=== PATIENT | male | born 1985 | race Caucasian/White ===

== ENCOUNTER 2018-12-07 13:43 | Emergency (ER) | payer OTHER ==
[2018-12-07 14:01] VITALS: TEMP 98.7; O2SAT 99
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
[2018-12-07] MEDS ORDERED: Lidocaine 5% Patch TD STA (15:13)
[2018-12-07 15:18] LABS: URINE BILIRUBIN NEGATIVE (NEGATIVE); URINE BLOOD NEGATIVE (NEGATIVE); URINE CLARITY Clear (Clear); URINE COLOR Straw (YELLOW); URINE GLUCOSE (UA) NORMAL (Normal); URINE LEUKOCYTE ESTERASE NEG Leu/uL (Negative); URINE PROTEIN NEGATIVE (NEGATIVE); URINE UROBILINOGEN NORMAL mg/dL (0.2-1.0)
[2018-12-07] MEDS ORDERED: Lidocaine 5% Patch TD ONE (15:36)
[2018-12-07 16:11] VITALS: BP 116/78; PULSE 66; RESP 18
== END 2018-12-07 16:20 | disposition home or self-care (01) ==
LOC: C.ER 13:43
DX: M54.5 Low back pain (principal); W18.30XA Fall on same level, unspecified, initial encounter; Y92.410 Unspecified street and highway as the place of occurrence of the external cause
CPT/HCPCS: 72114; 81001; 96372; 99284; J1885